=== PATIENT | male | born 1995 | race Caucasian/White ===

== ENCOUNTER 2017-12-25 02:46 | Emergency (ER) | payer SELFPAY ==
[~2017-12-25] VITALS: Ht 177.8 cm; Wt 77.3 kg
[2017-12-25 02:49] VITALS: TEMP 98.7
[2017-12-25 04:58] VITALS: BP 133/71; PULSE 71
== END 2017-12-25 05:02 | disposition home or self-care (01) ==
LOC: COL.ER 02:46
DX: S01.01XA Laceration without foreign body of scalp, initial encounter (principal); Z23 Encounter for immunization; Y04.0XXA Assault by unarmed brawl or fight, initial encounter